=== PATIENT | male | born 1995 | race African-American/Black ===

== ENCOUNTER 2019-04-07 14:01 | Emergency (ER) | payer SELFPAY ==
--- NOTE | 2019-04-07 15:08 | ER Document Report ---
ED Medical Screen (RME) - General Chief Complaint: Psych Problem Stated Complaint: DELUSIONS Time Seen by Provider: 04/07/19 14:55 Notes: Patient is a 23-year-old male with a history of paranoid schizophrenia and depression who presents the emergency department with a chief complaint of paranoid thoughts. Patient really simply moved here from [place] and now lives with his grandmother. The grandmother reports that since 2013 when his parents the patient has had intermittent bouts of depression. He does have a diagnosis of paranoid schizophrenia and has been on Zyprexa in the past. Patient was placed into a mental health facility while in [place], time and year unknown. Denies SI or HI at this time. Denies hallucinations. Patient was recently incarcerated and released from [facility] nursing home on April 04. Grandmother concerned that the patient is slipping into a deep depression. TRAVEL OUTSIDE OF THE U.S. IN LAST 30 DAYS: No - Related Data Allergies/Adverse Reactions: No Known Allergies Allergy (Verified 01/12/14 20:30) Past Medical History - Immunizations Hx Diphtheria, Pertussis, Tetanus Vaccination: Yes Physical Exam - Vital signs Vitals: Temp Pulse Resp BP Pulse Ox 98.2 F 69 20 119/68 100 04/07/19 14:18 04/07/19 14:18 04/07/19 14:18 04/07/19 14:18 04/07/19 14:18 Course - Re-evaluation Re-evalutation: 04/07/19 15:08 Patient has a flat affect -unable to obtain much of a history. Patient to be evaluated by her mental health staff. I have greeted and performed a rapid initial assessment of this patient. A comprehensive ED assessment and evaluation of the patient, analysis of test results and completion of the medical decision making process will be conducted by additional ED providers. - Vital Signs Vital signs: Temp Pulse Resp BP Pulse Ox 98.2 F 69 20 119/68 100 04/07/19 14:18 04/07/19 14:18 04/07/19 14:18 04/07/19 14:18 04/07/19 14:18
[2019-04-07 15:32] LABS: ABSOLUTE EOSINOPHILS # (AUTO) 0.2 10^3/uL (0.0-0.6); ABSOLUTE LYMPHOCYTES (AUTO) 1.9 10^3/uL (0.5-4.7); ABSOLUTE MONOCYTES (AUTO) 0.5 10^3/uL (0.1-1.4); ABSOLUTE NEUT (AUTO) 4.2 10^3/uL (1.7-8.2); BASOPHILS % (AUTO) 0.6 % (0-2); HEMATOCRIT 39.8 % (37.9-51.0); HEMOGLOBIN 13.1 g/dL (13.5-17.0); LYMPHOCYTES % (AUTO) 27.8 % (13-45); MEAN CORPUSCULAR HEMOGLOBIN 29.2 pg (27.0-33.4); MEAN CORPUSCULAR HGB CONC 32.8 g/dL (32.0-36.0); MEAN CORPUSCULAR VOLUME 89 fl (80-97); MONOCYTES % (AUTO) 7.7 % (3-13); PLATELET COUNT 252 10^3/uL (150-450); RED BLOOD COUNT 4.47 10^6/uL (4.35-5.55); RED CELL DISTRIBUTION WIDTH 12.6 % (11.5-14.0); SEGMENTED NEUTROPHILS % (AUTO) 60.9 % (42-78); TOTAL CELLS COUNTED % (AUTO) 100 %; WHITE BLOOD COUNT 6.9 10^3/uL (4.0-10.5)
[2019-04-07 15:52] LABS: APPEARANCE,URINE CLEAR; BILIRUBIN,URINE NEGATIVE (NEGATIVE); COLOR,URINE STRAW; GLUCOSE, URINE NEGATIVE (NEGATIVE); KETONES,URINE NEGATIVE (NEGATIVE); LEUKOCYTE ESTERASE,URINE NEGATIVE (NEGATIVE); NITRITE,URINE NEGATIVE (NEGATIVE); PROTEIN,URINE NEGATIVE (NEGATIVE); URINE SPECIFIC GRAVITY 1.013; UROBILINOGEN,URINE NEGATIVE mg/dL (<2.0)
[2019-04-07 15:53] LABS: ACETAMINOPHEN < 10 ug/mL (10-30); ALBUMIN 4.5 g/dL (3.5-5.0); ALCOHOL < 10 mg/dL (NONE DETECTED); ALKALINE PHOSPHATASE 64 U/L (38-126); ANION GAP 8 (5-19); ASPARTATE AMINO TRANSFERASE 20 U/L (17-59); BILIRUBIN,DIRECT 0.3 mg/dL (0.0-0.4); BILIRUBIN,TOTAL 0.3 mg/dL (0.2-1.3); BLOOD UREA NITROGEN 14 mg/dL (7-20); CALCIUM 9.6 mg/dL (8.4-10.2); CARBON DIOXIDE 32 mmol/L (22-30); CHLORIDE 102 mmol/L (98-107); GLUCOSE 101 mg/dL (75-110); POTASSIUM 4.6 mmol/L (3.6-5.0); SALICYLATE < 1.0 mg/dL (2.0-20.0)
[2019-04-07 16:02] LABS: URINE AMPHETAMINES SCREEN NEGATIVE; URINE BARBITURATES SCREEN NEGATIVE; URINE BENZODIAZEPINES SCREEN NEGATIVE; URINE COCAINE SCREEN NEGATIVE; URINE MARIJUANA (THC) SCREEN NEGATIVE; URINE METHADONE SCREEN NEGATIVE; URINE PHENCYCLIDINE SCREEN NEGATIVE
--- NOTE | 2019-04-07 16:36 | ER Document Report ---
ED Psych Disorder / Suicide - General Chief Complaint: Psych Problem Stated Complaint: DELUSIONS Time Seen by Provider: 04/07/19 14:55 Notes: HPI: 23-year-old male who presents today with his grandmother. Patient recently moved here from [place]. History of paranoid schizophrenia. Patient denies taking any medications for his paranoid schizophrenia secondary to "I believe I still can go to 6 foot 7". He denies any auditory visual hallucinations. He denies any suicidal homicidal ideations. Unknown time since the last time he was on his medications. Grandmom states that the patient has had very odd behavior and she is concerned. ROS: See HPI All other review of systems reviewed and otherwise negative Reviewed vital signs and nursing note as charted by RN. PHYSICAL EXAM: CONSTITUTIONAL: Alert and oriented and responds appropriately to questions. Well-appearing; well-nourished HEAD: Normocephalic; atraumatic EYES: PERRL; Conjunctivae clear, sclerae non-icteric; no nystagmus ENT: Normal nose; no rhinorrhea; moist mucous membranes; pharynx without lesions noted NECK: Supple without meningismus; non-tender; no cervical lymphadenopathy, no masses CARD: Regular rate and rhythm; no murmurs; symmetric distal pulses RESP: Normal chest excursion without splinting or tachypnea; breath sounds clear and equal bilaterally; no wheezes, no rhonchi, no rales ABD/GI: Normal bowel sounds; non-distended; soft, non-tender; no palpable organomegaly or masses BACK: The back appears normal and is non-tender to palpation EXT: Normal ROM in all joints; non-tender to palpation; no edema SKIN: No acute lesions noted NEURO: CN 2-12 intact; 5/5 bilateral upper and lower extremity strength with sensation intact to light touch PSYCH: Patient's thoughts are non-congruent. He has very odd answers TRAVEL OUTSIDE OF THE U.S. IN LAST 30 DAYS: No - Related Data Allergies/Adverse Reactions: No Known Allergies Allergy (Verified 01/12/14 20:30) Past Medical History - Social History Smoking Status: Former Smoker Family History: Reviewed & Not Pertinent Patient has suicidal ideation: No Patient has homicidal ideation: No - Immunizations Hx Diphtheria, Pertussis, Tetanus Vaccination: Yes Physical Exam - Vital signs Vitals: Temp Pulse Resp BP Pulse Ox 98.2 F 69 20 119/68 100 04/07/19 14:18 04/07/19 14:18 04/07/19 14:18 04/07/19 14:18 04/07/19 14:18 Course - Re-evaluation Re-evalutation: Given the history and physical we did order basic labs, psychiatric laboratory profile, and behavioral health consult. I do believe that the patient has been noncompliant with his medications causing him to have a strange affect and possible delusions. 04/07/19 16:35 Laboratory values as recorded. 04/07/19 16:42 EKG shows heart of 58, normal sinus rhythm, no ST elevation or depression. - Vital Signs Vital signs: Temp Pulse Resp BP Pulse Ox 98.2 F 69 20 119/68 100 04/07/19 14:18 04/07/19 14:18 04/07/19 14:18 04/07/19 14:18 04/07/19 14:18 - Laboratory Result Diagrams: 04/07/19 13:15 04/07/19 13:15 Laboratory results interpreted by me: 04/07/19 04/07/19 13:15 13:15 Hgb 13.1 L Carbon Dioxide 32 H Salicylates < 1.0 L Acetaminophen < 10 L Discharge - Discharge Clinical Impression: Paranoid schizophrenia Condition: Fair Disposition: PSYCH HOSP/UNIT
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
[2019-04-07] MEDS: BENZTROPINE MESYLATE 1 MG TABLET PO SCH (17:22)
--- NOTE | 2019-04-07 17:47 | EKG REPORT ---
SEVERITY:- ABNORMAL ECG - SINUS ARRHYTHMIA, RATE 47-67 ST ELEVATION SUGGESTS PERICARDITIS, CLINICAAL COREELATION AND SERIAL EKGS NEEDED. : Confirmed by: Brian Sutherland MD 07-Apr-2019 17:46:15
[2019-04-07] MEDS: CHLORPROMAZINE HCL 50 MG TABLET PO SCH (17:52)
[2019-04-07] MEDS ORDERED: OLANZAPINE 5 MG TABLET PO SCH (18:00)
--- NOTE | 2019-04-08 07:25 | ER Document Report ---
Doctor's Note Notes: 04/08/19 07:25 Chart reviewed. Patient resting quietly all night no complaints.
--- NOTE | 2019-04-08 11:14 | ER Document Report ---
Doctor's Note Notes: 04/08/19 11:14 Patient is a 23-year-old male with a history of paranoid schizophrenia presents with delusions that was initially worked up yesterday. Patient has reportedly been believing that he owns certain places when he is in them which leads to aggression when he is confronted. Labs and vitals were unremarkable. He has no new concerns or complaints. He denies any SI or HI. Denies any headache, fever, neck pain, URI, sore throat, chest pain, palpitations, syncope, cough, shortness of breath, wheeze, dyspnea, abdominal pain, nausea/vomiting/diarrhea, urinary retention, dysuria, hematuria, or rash. General: A&Ox2. Answers questions appropriately. Heart: RRR Lungs: CTAB Psych: Normal affect A/P: Continue monitoring and med rec's per MH. Reviewed with mental health and they will be looking for placement. Normal diet
[2019-04-08] MEDS: BENZTROPINE MESYLATE 1 MG TABLET PO SCH (11:15)
[2019-04-08] MEDS: CHLORPROMAZINE HCL 50 MG TABLET PO SCH ×3 (11:15→18:38)
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
[2019-04-08 20:07] VITALS: BP 108/64
== END 2019-04-08 20:00 ==
LOC: ER 14:01
DX: F20.0 Paranoid schizophrenia (principal); F32.9 Major depressive disorder, single episode, unspecified
CPT/HCPCS: 93005; 99285; 36415; 80307 ×4; 85025; 80053; 81001; 93010; J3490 ×2

== ENCOUNTER 2019-10-30 00:44 | Emergency (ER) | payer SELFPAY ==
[2019-10-30 00:57] VITALS: BP 129/76
--- NOTE | 2019-10-30 01:07 | ER Document Report ---
ED General - General Chief Complaint: Other Stated Complaint: FATIGUE Time Seen by Provider: 10/30/19 00:56 Mode of Arrival: Ambulatory Information source: Patient Notes: 24-year-old -[place] male coming in today complaining of fatigue and does not feel like he has the general stamina that he normally has. Does not have a fever. Does not have any chronic medical problems. Generally worried about his overall health. TRAVEL OUTSIDE OF THE U.S. IN LAST 30 DAYS: No - Related Data Allergies/Adverse Reactions: No Known Allergies Allergy (Verified 01/12/14 20:30) Past Medical History - Social History Smoking Status: Current Every Day Smoker Frequency of alcohol use: Occasional Drug Abuse: Marijuana Family History: Reviewed & Not Pertinent - Immunizations Hx Diphtheria, Pertussis, Tetanus Vaccination: Yes Review of Systems - Review of Systems Notes: Constitutional: No fevers. No chills. Fatigue EENT: No eye redness. No eye pain. No ear pain. No sore throat. Cardiovascular: No chest pain. No palpitations. Respiratory: No cough. No shortness of breath. No respiratory distress. Gastrointestinal: No abdominal pain. No nausea, vomiting, or diarrhea. Genitourinary: Atraumatic. No lesions. No pain. No discharge. Musculoskeletal: Atraumatic. No swelling. No deformities. Skin: No rash or lesions. Lymphatic: No swollen lymph nodes. Neurologic: No headache. No syncope. Psychiatric: No suicidal or homicidal ideation. Physical Exam - Vital signs Vitals: Temp Pulse Resp BP Pulse Ox 97.8 F 69 16 129/76 H 99 10/30/19 00:55 10/30/19 00:55 10/30/19 00:55 10/30/19 00:55 10/30/19 00:55 - Notes Notes: General: Well-developed, well-nourished. In no acute distress. Non-toxic appearing. Cardiac: Well-perfused. Regular rate and rhythm. No murmurs, rubs, or gallops. Pulmonary: No respiratory distress. No cyanosis. Bilateral lung fiels are clear to auscultation. Abdominal: Non-distended. Non-rigid. Bowels sounds are present in all four quadrants. No guarding or rebound. HEENT: Head is atraumatic. Conjunctivae not reddened. No tearing. PERRL. EOMI. Orbits atraumatic. No periorbital swelling or erythema. Oropharynx is without erythema, swelling, or exudates. Neck: Supple. No adenopathy. No meningismus. Dermatologic: Warm with good turgor. No rash. Atraumatic. Chest: Atraumatic. No chest wall tenderness to palpation. Musculoskeletal: Moves all extremities well. No range of motion deficits. no muscular or joint tenderness. No paraspinal muscle tenderness. no midline spinal tenderness or step-off. Genitourinary: Examination deferred Neurologic: No gross neurologic deficits. Psychiatric: Normal mood. Course - Re-evaluation Re-evalutation: 10/30/19 01:06 Patient has a normal exam. Will discharge home - Vital Signs Vital signs: Temp Pulse Resp BP Pulse Ox 97.8 F 69 16 129/76 H 99 10/30/19 00:55 10/30/19 00:55 10/30/19 00:55 10/30/19 00:55 10/30/19 00:55 Discharge - Discharge Clinical Impression: Fatigue Qualifiers: Fatigue type: unspecified Qualified Code(s): R53.83 - Other fatigue Condition: Good Disposition: HOME, SELF-CARE Instructions: Fatigue ([facility]) Forms: Return to Work
== END 2019-10-30 01:45 | disposition home or self-care (01) ==
LOC: ER 00:44
DX: R53.83 Other fatigue (principal); F17.200 Nicotine dependence, unspecified, uncomplicated
CPT/HCPCS: 99282

== ENCOUNTER 2020-01-14 16:27 | Emergency (ER) | payer SELFPAY ==
--- NOTE | 2020-01-14 16:43 | ER Document Report ---
ED Medical Screen (RME) - General Chief Complaint: Psych Problem Stated Complaint: PSYCH Time Seen by Provider: 01/14/20 16:36 Mode of Arrival: Ambulatory Information source: Patient Notes: 24-year-old male presents to ED for evaluation. He states he has psychosis and schizophrenia and his he does not think he is safe enough to live with them. He is living on his own at this time. He states he is being evaluated at this time for the psychosis and schizophrenia. Has not had any thoughts or threats of suicide or homicide. He has been having auditory and visual hallucinations his conversation has been bizarre and of the wall and his pain level has greatly decreased. He is here with mobile crisis provider Nicki. According to Nicki he is not on any medications he is here voluntarily but he needs to be evaluated and treated. I have greeted and performed a rapid initial assessment of this patient. A comprehensive ED assessment and evaluation of the patient, analysis of test results and completion of medical decision making process will be conducted by an additional ED providers. TRAVEL OUTSIDE OF THE U.S. IN LAST 30 DAYS: No - Related Data Allergies/Adverse Reactions: No Known Allergies Allergy (Verified 01/12/14 20:30) Past Medical History - Immunizations Hx Diphtheria, Pertussis, Tetanus Vaccination: Yes Physical Exam - Vital signs Vitals: Temp Pulse Resp BP Pulse Ox 98.6 F 78 20 121/69 99 01/14/20 16:38 01/14/20 16:38 01/14/20 16:38 01/14/20 16:38 01/14/20 16:38 Course - Vital Signs Vital signs: Temp Pulse Resp BP Pulse Ox 98.6 F 78 20 121/69 99 01/14/20 16:38 01/14/20 16:38 01/14/20 16:38 01/14/20 16:38 01/14/20 16:38
[2020-01-14 17:50] LABS: ABSOLUTE EOSINOPHILS # (AUTO) 0.3 10^3/uL (0.0-0.6); ABSOLUTE LYMPHOCYTES (AUTO) 1.3 10^3/uL (0.5-4.7); ABSOLUTE MONOCYTES (AUTO) 0.4 10^3/uL (0.1-1.4); ABSOLUTE NEUT (AUTO) 4.5 10^3/uL (1.7-8.2); BASOPHILS % (AUTO) 0.5 % (0-2); EOSINOPHILS % (AUTO) 4.1 % (0-6); HEMATOCRIT 43.1 % (37.9-51.0); HEMOGLOBIN 14.3 g/dL (13.5-17.0); LYMPHOCYTES % (AUTO) 20.4 % (13-45); MEAN CORPUSCULAR HEMOGLOBIN 28.8 pg (27.0-33.4); MEAN CORPUSCULAR HGB CONC 33.1 g/dL (32.0-36.0); MEAN CORPUSCULAR VOLUME 87 fl (80-97); MONOCYTES % (AUTO) 6.7 % (3-13); PLATELET COUNT 273 10^3/uL (150-450); RED BLOOD COUNT 4.95 10^6/uL (4.35-5.55); RED CELL DISTRIBUTION WIDTH 13.3 % (11.5-14.0); SEGMENTED NEUTROPHILS % (AUTO) 68.3 % (42-78); TOTAL CELLS COUNTED % (AUTO) 100 %; WHITE BLOOD COUNT 6.6 10^3/uL (4.0-10.5)
--- NOTE | 2020-01-14 17:57 | ER Document Report ---
ED General - General Chief Complaint: Psych Problem Stated Complaint: PSYCH Time Seen by Provider: 01/14/20 16:36 Mode of Arrival: Ambulatory TRAVEL OUTSIDE OF THE U.S. IN LAST 30 DAYS: No - HPI Notes: Chief complaint: Request for mental health evaluation. History of present illness: 24-year-old male seen today for mental health evaluation. Patient has a history of paranoid schizophrenia. He is noncompliant with medication. He was staying in a local hotel and apparently refused to pay the bill and was subsequently evicted and taken to penitentiary. He got out of penitentiary yesterday. He found some relatives locally who are willing to let him stay with him last night. They had a "serious talk" and the agreement was that he would not be allowed to continue to reside there unless he sought mental health counseling. Patient has been treated as an inpatient at [facility] in the past. He is not regularly following up with any outpatient mental health services. He is a high school graduate. He has had some college courses. He says he is . He reports he previously served in the [employer]. He admits some auditory hallucinations in the past but denies any of these are threatening to him. Not currently experiencing auditory hallucinations. No visual hallucinations. He denies any sense that anyone is trying to control him or harm him. Denies use of alcohol. He is a cigarette smoker. Says he takes CBD oil but denies any drug abuse. - Related Data Allergies/Adverse Reactions: No Known Allergies Allergy (Verified 01/14/20 17:31) Past Medical History - General Information source: Patient - Social History Smoking Status: Current Every Day Smoker Frequency of alcohol use: None Drug Abuse: None Lives with: Family Family History: Reviewed & Not Pertinent - Immunizations Hx Diphtheria, Pertussis, Tetanus Vaccination: Yes Review of Systems - Review of Systems Notes: Constitutional: Negative for fever. HENT: Negative for sore throat. Eyes: Negative for visual changes. Cardiovascular: Negative for chest pain. Respiratory: Negative for shortness of breath. Gastrointestinal: Negative for abdominal pain, vomiting or diarrhea. Genitourinary: Negative for dysuria. Musculoskeletal: Negative for back pain. Skin: Negative for rash. Neurological: Negative for headaches, weakness or numbness. 10 point ROS negative except as marked above and in HPI. Physical Exam - Vital signs Vitals: Temp Pulse Resp BP Pulse Ox 98.6 F 78 20 121/69 99 01/14/20 16:38 01/14/20 16:38 01/14/20 16:38 01/14/20 16:38 01/14/20 16:38 - Notes Notes: GENERAL: Well-developed well-nourished appearing in no acute distress. SKIN: Good turgor no rashes. HEAD: Normocephalic atraumatic. EYES: PERRLA. EOMI. Conjunctivae and sclerae clear. EARS: CANALS AND TMS CLEAR. NOSE: CLEAR. MOUTH: Moist mucosa. Good dentition. No stridor or edema. No drooling. NECK: Supple. No masses or thyromegaly. No adenopathy. Carotids 2+ without bruits. No JVD. BACK: Symmetrical without tenderness. CHEST: Respirations unlabored. Breath sounds clear and symmetrical. HEART: Regular rhythm. No murmur gallop or rub. ABDOMEN: Soft nontender without masses, organomegaly or rebound. Bowel sounds normally active. No bruits. GENITALIA: Deferred. EXTREMITIES: No edema. No calf tenderness. Cap refill less than 1.5 seconds. Dorsalis pedis and posterior tibial pulses 3+ and symmetrical. NEUROLOGICAL: GCS 15. Alert and oriented x3. Normal gait. Fluent speech. Cranial nerves II through XII intact. Sensorimotor and cerebellar normal. Normal tone. PSYCHIATRIC: Patient has slight flight of ideas and difficulty focusing on conversation.. Course - Re-evaluation Re-evalutation: 01/14/20 21:19 Patient been medically cleared. He has been seen by the behavioral service. He is apparently now responding to some internal stimuli and is talking to himself and appears mildly anxious. He has been petition for [facility]. - Vital Signs Vital signs: Temp Pulse Resp BP Pulse Ox 98.6 F 78 20 121/69 99 01/14/20 17:31 01/14/20 16:38 01/14/20 16:38 01/14/20 16:38 01/14/20 16:38 - Laboratory Results Result Diagrams: 01/14/20 17:05 01/14/20 17:05 Laboratory Results Interpreted: 01/14/20 17:05 Salicylates < 1.0 L Acetaminophen < 10 L Critical Laboratory Results Reviewed: No Critical Results - Radiology Results Critical Radiology Results Reviewed: No Critical Results Discharge - Discharge Clinical Impression: Paranoid schizophrenia Condition: Good Disposition: PSYCH HOSP/UNIT
[2020-01-14 18:00] LABS: ALBUMIN 4.6 g/dL (3.5-5.0); ALKALINE PHOSPHATASE 70 U/L (38-126); ANION GAP 9 (5-19); ASPARTATE AMINO TRANSFERASE 25 U/L (17-59); BILIRUBIN,DIRECT 0.1 mg/dL (0.0-0.4); BILIRUBIN,TOTAL 0.5 mg/dL (0.2-1.3); BLOOD UREA NITROGEN 13 mg/dL (7-20); CALCIUM 9.7 mg/dL (8.4-10.2); CARBON DIOXIDE 30 mmol/L (22-30); CHLORIDE 102 mmol/L (98-107); GLUCOSE 108 mg/dL (75-110); POTASSIUM 4.6 mmol/L (3.6-5.0)
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
[2020-01-14 18:01] LABS: ACETAMINOPHEN < 10 ug/mL (10-30); ALCOHOL < 10 mg/dL (NONE DETECTED); SALICYLATE < 1.0 mg/dL (2.0-20.0)
[2020-01-14 18:03] LABS: APPEARANCE,URINE CLEAR; BILIRUBIN,URINE NEGATIVE (NEGATIVE); COLOR,URINE YELLOW; GLUCOSE, URINE NEGATIVE (NEGATIVE); KETONES,URINE NEGATIVE (NEGATIVE); LEUKOCYTE ESTERASE,URINE NEGATIVE (NEGATIVE); NITRITE,URINE NEGATIVE (NEGATIVE); PROTEIN,URINE NEGATIVE (NEGATIVE); URINE SPECIFIC GRAVITY 1.019; UROBILINOGEN,URINE NEGATIVE mg/dL (<2.0)
[2020-01-14 18:19] LABS: URINE AMPHETAMINES SCREEN NEGATIVE; URINE BARBITURATES SCREEN NEGATIVE; URINE BENZODIAZEPINES SCREEN NEGATIVE; URINE COCAINE SCREEN NEGATIVE; URINE MARIJUANA (THC) SCREEN NEGATIVE; URINE METHADONE SCREEN NEGATIVE; URINE PHENCYCLIDINE SCREEN NEGATIVE
--- NOTE | 2020-01-14 18:49 | EKG REPORT ---
SEVERITY:- NORMAL ECG - SINUS RHYTHM SINUS ARRHYTHMIA : Confirmed by: Barbara Donis 14-Jan-2020 18:49:07
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
[2020-01-15 01:17] VITALS: BP 118/65
== END 2020-01-15 01:29 ==
LOC: ER 16:27
DX: F20.0 Paranoid schizophrenia (principal); F17.210 Nicotine dependence, cigarettes, uncomplicated; Z20.828 Contact with and (suspected) exposure to other viral communicable diseases
CPT/HCPCS: 93005; 99285; 36415; 80307 ×4; 85025; 0241U ×4; 80053; 81001; 93010; C9803